=== PATIENT | male | born 1975 | race Caucasian/White ===

== ENCOUNTER 2018-01-17 20:45 | Emergency (ER) | payer OTHER ==
[2018-01-17] MEDS ORDERED: Adacel (T-DAP) 0.5 ML VIAL ONE (21:01)
== END 2018-01-17 21:45 | disposition home or self-care (01) ==
LOC: NAV ERS 20:45
DX: S80.812A Abrasion, left lower leg, initial encounter (principal); S80.811A Abrasion, right lower leg, initial encounter; Z23 Encounter for immunization; Z79.899 Other long term (current) drug therapy; X58.XXXA Exposure to other specified factors, initial encounter
CPT/HCPCS: 90471; 90715